=== PATIENT | female | born 1985 | race African-American/Black ===

== ENCOUNTER 2018-09-28 18:43 | Emergency (ER) | payer MEDICAID ==
[~2018-09-28] VITALS: Ht 157.5 cm; Wt 74.4 kg
[2018-09-28 19:01] VITALS: BP 145/95
[2018-09-28 20:04] LABS: Basophils # (auto) 0.1 uL; Basophils % (auto) 0.9 % (0.0-2.0); Eosinophils # (auto) 0.1 uL; Eosinophils % (auto) 1.8 % (0.0-7.0); Hematocrit 39.3 % (36.0-46.0); Hemoglobin 12.8 g/dL (12.2-16.2); Lymphocytes # (auto) 2.1 uL; Lymphocytes % (auto) 25.1 % (10.0-50.0); Mean Corpuscular Hemoglobin 28.8 pg (28.0-32.0); Mean Corpuscular Hgb Conc. 32.5 g/dL (32.0-36.0); Mean Corpuscular Volume 88.7 fL (80.0-100.0); Monocytes # (auto) 0.5 uL; Monocytes % (auto) 6.5 % (0.0-12.0); Neutrophils # (auto) 5.4 uL; Neutrophils % (auto) 65.7 % (37.0-80.0); Nucleated Red Blood Cells % 0.1 %; Platelet Count (auto) 358 10^3/uL (140-450); Red Blood Cells 4.43 10^6/uL (4.0-5.20); Red Cell Distribution Width 13.7 % (11.8-14.3); White Blood Cell 8.3 10^3/uL (4.4-10.8)
[2018-09-28 20:19] LABS: Albumin 3.4 g/dL (3.4-5.0); Calcium 8.5 mg/dL (8.5-10.1); Potassium 4.2 mmol/L (3.5-5.1)
[2018-09-28 20:21] LABS: Bilirubin, Total 0.2 mg/dL (0.2-1.0); Total Protein 7.9 g/dL (6.4-8.2)
[2018-09-28 20:24] LABS: Partial Thromboplastin Time 29.9 sec (23.78-33.04); Prothrombin Time 10.7 sec (9.27-12.13)
== END 2018-09-28 21:42 | disposition left against medical advice (07) ==
LOC: ER 18:43
DX: R22.42 Localized swelling, mass and lump, left lower limb (principal); Z53.21 Procedure and treatment not carried out due to patient leaving prior to being seen by health care provider
CPT/HCPCS: 36415; 80053; 84702; 85025; 85610; 85730; 93971

== ENCOUNTER 2018-10-31 11:09 | Emergency (ER) | payer MEDICAID ==
[~2018-10-31] VITALS: Ht 157.5 cm; Wt 73.5 kg
[2018-10-31 15:01] VITALS: BP 168/92
== END 2018-10-31 14:47 | disposition home or self-care (01) ==
LOC: ER 11:11
DX: M71.22 Synovial cyst of popliteal space [Baker], left knee (principal); F12.10 Cannabis abuse, uncomplicated
CPT/HCPCS: 93971

== ENCOUNTER 2023-11-29 18:30 | Emergency (ER) | payer BC, MEDICAID ==
[~2023-11-29] VITALS: Ht 157.5 cm; Wt 78.7 kg
[2023-11-29 18:55] VITALS: BP 136/86; PULSE 102; RESP 14; O2SAT 100
[2023-11-29 20:15] LABS: Urine Bacteria None Seen /hpf (None Seen)
[2023-11-29 20:35] LABS: Urine Amorphous Crystal FEW /hpf (None Seen); Urine Blood Negative /uL (Negative); Urine Clarity Turbid (Clear); Urine Color Light-Yellow (Yellow); Urine Protein, UAD Negative (Negative); Urine Specific Gravity 1.023 (1.001-1.035); Urine Urobilinogen Normal (Negative); Urine WBC 5 /hpf (0 - 5)
== END 2023-11-29 21:39 | disposition left against medical advice (07) ==
LOC: ER 18:30
DX: O99.612 Diseases of the digestive system complicating pregnancy, second trimester (principal); K92.89 Other specified diseases of the digestive system; F12.90 Cannabis use, unspecified, uncomplicated; Z3A.18 18 weeks gestation of pregnancy
CPT/HCPCS: 81001